=== PATIENT | female | born 1940 | race Caucasian/White ===

== ENCOUNTER 2021-11-15 14:49 | Emergency (ER) | payer MEDICARE, SELFPAY ==
[2021-11-15 14:55] VITALS: BP 141/82; PULSE 85; RESP 18; TEMP 36.7; O2SAT 100
--- NOTE | 2021-11-15 15:02 | ED.SKABFB ---
HPI - Skin/Abscess/Foreign Bdy General Chief complaint: Skin/Abscess/Foreign Body Stated complaint: thinks shingles Time Seen by Provider: 11/15/21 14:50 Source: patient and RN notes reviewed History of Present Illness HPI narrative: Patient is an 81-year-old female who presents the urgent care with complaints of a rash to the right flank traveling to the left abdomen. Patient states that she noticed it today and her friends told her to get it checked out and they believe its shingles . Patient has not taken anything [id number] for her symptoms and states that the rash is not itchy or painful. No other acute complaints. No acute distress noted. Patient aware of the plan of care. Some parts of this dictation were generated by voice recognition software and may contain typographical and/or grammatical inaccuracies. Related Data Home Medications Medication Instructions Recorded Confirmed levothyroxine 112 mcg tablet 1 tablet PO DAILY 11/15/21 11/15/21 (Euthyrox) Allergies Allergy/AdvReac Type Severity Reaction Status Date / Time No Known Allergies Allergy Unverified 11/15/21 15:04 Review of Systems Review of Systems: CONSTITUTIONAL: Denies fever, chills, or sweats. EYES: Denies visual changes, redness, or discharge. ENT: Denies rhinorrhea, congestion, sore throat, or otalgia. CARDIOVASCULAR: Denies chest pain, palpitations, or edema. RESPIRATORY: Denies cough or dyspnea. GASTROINTESTINAL: Denies abdominal pain, nausea, vomiting, or diarrhea. GENITOURINARY: Denies dysuria or hematuria. SKIN: Reports of a red rash to the right flank MUSCULOSKELETAL: Denies back pain, joint pain, or myalgia. NEUROLOGIC: Denies headache, numbness, or weakness. All other systems reviewed are negative, except as documented in HPI. PMFSH Comments At the time of my signature, I reviewed and agree with the nursing past medical, surgical, social, and family history. There is no relevant family history pertinent to the patient complaint. Exam Narrative: GENERAL: This is a well-nourished, well-developed patient, in no apparent distress. HEAD: normocephalic, atraumatic. EYES: PERRL. Sclera clear/white. Vision is grossly intact. EARS: External ears normal NOSE: External nose normal with no obvious nasal discharge, nares without redness, no rhinorrhea. THROAT: Mucous membranes moist NECK: Neck supple SKIN: Vesicular/erythemic dermatitis to the right flank stopping right at the spinous/midline and traveling along the dermatome to the lower left suprapubic region consistent with herpes zoster NEURO: awake, alert, and oriented to person, place and time. There were no obvious focal neurologic abnormalities. EXTREMITIES: No clubbing, cyanosis, or edema. Course Course Level of Care: Express Care Visit Vital Signs Vital signs: Vital Signs Temperature 98.1 F 11/15/21 14:55 Pulse Rate 85 11/15/21 14:55 Respiratory Rate 18 11/15/21 14:55 Blood Pressure 141/82 H 11/15/21 14:55 Pulse Oximetry 100 11/15/21 14:55 Oxygen Delivery Room Air 11/15/21 14:55 Temperature 98.1 F 11/15/21 14:55 Pulse Rate 85 11/15/21 14:55 Respiratory Rate 18 11/15/21 14:55 Blood Pressure 141/82 H 11/15/21 14:55 Pulse Oximetry 100 11/15/21 14:55 Oxygen Delivery Room Air 11/15/21 14:55 Reviewed-patient is informed that they may have pre-hypertension or hypertension based on a blood pressure reading in the department. I recommend the patient call the primary care provider listed on their discharge instructions or a physician of their choice this week to arrange follow-up for further evaluation of possible pre-hypertension or hypertension. MDM - Skin/Abscess/Foreign Bdy MDM Narrative Medical decision making narrative: Advised patient to complete the oral antiviral regimen as prescribed. Be sure to eat and drink with medication. May use Benadryl as needed for itch. The antiviral will dry out the rash however you may develop abby
== END 2021-11-15 15:10 | disposition home or self-care (01) ==
PROVIDERS: Emergency Provider Nurse Practitioner Family; PCP Nurse Practitioner Family
DX: B02.9 Zoster without complications (principal); E03.9 Hypothyroidism, unspecified
CPT/HCPCS: 99213; G0463